=== PATIENT | female | born 1970 | race American Indian/Alaskan Native ===

== ENCOUNTER 2018-09-29 15:34 | Outpatient (CLI) | payer OTHER ==
--- NOTE | 2018-09-29 18:43 | Magnetic Resonance Report ---
PROCEDURE: MR CERVICAL SPINE WO CON HISTORY: CERVICALGIA FINDINGS: MRI of the cervical spine was performed using sagittal T1, sagittal T2, sagittal inversion recovery, axial T2 and axial T2*gradient echo images. These images demonstrate that the visualized portion of the posterior fossa is within normal limits. The C1-C2 articulation is normally aligned. At C2-C3 there are no posterior disc abnormalities. At C3-C4 there is loss of disc T2 signal intensity. There is a small central and left paracentral dis c protrusion which effaces the anterior margin of the thecal sac but does not result in canal stenosi s. There is no evidence of neural foraminal narrowing or nerve root impingement. At C4 C5, C5 C6 and C7-T1 there is mild loss of disc T2 signal intensity. There are no posterior disc abnormalities. There is no evidence of canal stenosis or nerve root impingement. At C6-C7 there is a minimal central disc protrusion which does not result in canal stenosis or signif icant neural foraminal narrowing or nerve root impingement. At C7-T1 there are no posterior disc abnormalities. Cervical cord signal is within normal limits. IMPRESSION: Small central and left paracentral disc protrusion at C3-C4 which does not result in sheryl l stenosis or nerve root impingement. This document is electronically signed by Binu Loyola MD., September 29 2018 06:41:09 PM ET
== END 2018-09-29 15:35 | disposition home or self-care (01) ==
LOC: MRI 15:34
PROVIDERS: ATTEND Orthopaedic Surgery
DX: M50.21 Other cervical disc displacement, high cervical region (principal); I10 Essential (primary) hypertension
CPT/HCPCS: 72141

== ENCOUNTER 2019-01-07 11:15 | Outpatient (CLI) | payer OTHER ==
--- NOTE | 2019-01-07 15:11 | Magnetic Resonance Report ---
MRI UPPER EXTREMITY JOINT RIGHT WITHOUT CONTRAST HISTORY: Pain in right shoulder. TECHNIQUE: Multisequence, multiplanar MRI without contrast was performed through the right shoulder. COMPARISON: None. FINDINGS: A focal full thickness tear is identified in the distal supraspinatus tendon measuring approximately 5 mm in greatest diameter. This tear is located just lateral to the acromion approximately 1 cm from its insertion site on the proximal humerus. The subscapularis tendon, infraspinatus tendon and teres minor tendon are intact. There is increased signal and thickening in the horizontal portion of the long head of the biceps tendon. A longitudinal tear or tendinosis is suspected. The labrum is grossly intact. The bone marrow signal within the visualized bony structures is within normal limits. Mild acromioclavicular osteoarthritis is noted. A small joint effusion and small fluid in the subdeltoid bursa are identified. IMPRESSION: Focal full thickness tear in the distal supraspinatus tendon. Tendinosis versus longitudinal tear in the horizontal portion of the long head of the biceps tendon. Mild acromioclavicular osteoarthritis. Small joint effusion and bursal fluid.
== END 2019-01-07 11:16 | disposition home or self-care (01) ==
LOC: MRI 11:15
PROVIDERS: ATTEND Orthopaedic Surgery
DX: M75.101 Unspecified rotator cuff tear or rupture of right shoulder, not specified as traumatic (principal); M19.011 Primary osteoarthritis, right shoulder; M25.411 Effusion, right shoulder; I10 Essential (primary) hypertension

== ENCOUNTER 2019-02-12 12:18 | Day surgery (SDC) | payer OTHER ==
[~2019-02-12 12:18] MED LIST: ADRENALINE P/F ONE; DEPO-Medrol ONE; MARCAINE-EPI 0.25%-1:200,000 INFILTRATI ONE
[2019-02-12] MEDS ORDERED: SUBLIMAZE IV PRN (13:03)
[2019-02-12] MEDS ORDERED: SUBLIMAZE IV ONE (13:03)
--- NOTE | 2019-02-12 13:03 | Anesthesia Day of Surgery ---
Anesthesia Day of Surgery - Day of Surgery Patient Examined: Yes Patient H&P Reviewed: Yes Patient is NPO: Yes
--- NOTE | 2019-02-12 13:03 | Anesthesia Consultation ---
Anesthesia Consult and Med Hx Date of service: 02/12/19 - Airway Anesthetic Teeth Evaluation: Good ROM Head & Neck: Adequate Mental/Hyoid Distance: Adequate Mallampati Class: Class II Intubation Access Assessment: Probably Good - Pulmonary Exam CTA: Yes - Cardiac Exam Cardiac Exam: No Murmur (abnormal rhythm consistent with bigeminy) - Pre-Operative Health Status ASA Pre-Surgery Classification: ASA2 Proposed Anesthetic Plan: General Nerve Block: IS - Pulmonary Hx Smoking: No Hx Respiratory Symptoms: No Hx Sleep Apnea: No - Cardiovascular System Hx Hypertension: Yes (took methyldopa this morning) Hx Coronary Artery Disease: No Hx Heart Attack/AMI: No Hx Percutaneous Transluminal Coronary Angioplasty (PTCA): No Hx Cardia Arrhythmia: Yes (hx Bigeminy with neg cardiac work up per patient report) - Central Nervous System Hx Seizures: No CVA: No Hx Psychiatric Problems: No - Gastrointestinal Hx Gastroesophageal Reflux Disease: No - Endocrine Hx Renal Disease: No Hx Liver Disease: No Hx Insulin Dependent Diabetes: No Hx Non-Insulin Dependent Diabetes: No Hx Thyroid Disease: No - Other Systems Hx Obesity: No - Additional Comments Anesthesia Medical History Comments: No hx anesthetic complications.
[2019-02-12] MEDS ORDERED: NEURONTIN PO NR (14:00)
[2019-02-12] MEDS ORDERED: VERSED IV NR (14:00)
[2019-02-12] MEDS ORDERED: LACTATED RINGERS 1,000 ML IV SCH (14:00)
[2019-02-12] MEDS ORDERED: MARCAINE-EPI 0.5%-1:200,000 INFILTRATI ONE (14:35)
[2019-02-12] MEDS ORDERED: ANCEF/STERILE WATER 2 GM/20 ML IV NR (15:00)
[2019-02-12] MEDS ORDERED: DEPO-Medrol ONE ×3 (15:35→19:58)
[2019-02-12] MEDS ORDERED: DIPRIVAN 10 MG/ML IV ONE (19:00)
[2019-02-12] MEDS ORDERED: SUBLIMAZE ONE (19:01)
[2019-02-12] MEDS ORDERED: ZOFRAN ONE (19:02)
[2019-02-12] MEDS ORDERED: XYLOCAINE MPF 2% ONE (19:02)
[2019-02-12] MEDS ORDERED: DECADRON ONE (19:02)
[2019-02-12] MEDS ORDERED: ADRENALINE P/F ONE (19:42)
[2019-02-12] MEDS ORDERED: DEPO-Medrol INTRA-ARTI ONE ×2 (20:03)
[2019-02-12] MEDS ORDERED: ADRENALIN IV ONE (20:03)
[2019-02-12] MEDS ORDERED: ROBINUL ONE (20:26)
[2019-02-12] MEDS ORDERED: BLOXIVERZ ONE (20:26)
[2019-02-12] MEDS ORDERED: TORADOL ONE (20:26)
[2019-02-12] MEDS ORDERED: ZEMURON IV ONE (20:26)
--- NOTE | 2019-02-12 20:32 | Procedure Note ---
Date of procedure: 02/12/19 Pre-op diagnosis: Right shoulder pain Post-op diagnosis: same Procedure: Arthroscopy right shoulder with subacromial decompression Procedure The patient was brought to the OR after being given a scalene nerve block for postop pain management, she was placed on the table supine following induction with MAC anesthesia patient was turned into the left lateral decubitus position at which point the right shoulder was prepped and draped in the usual sterile manner. A timeout procedure was done to identify the patient and the correct operative site. Routine arthroscopic portals were made into the subacromial space examination of the subacromial space revealed patient had abundant bursal thickening with apparent partial thickness tears in the supraspinatus tendon along with a large bone spur noted at the distal acromion using a combination of arthroscopic shaver and tissue ablator the subacromial space was debrided of soft tissue and the arm was then rotated internally and externally to see if there were a full-thickness rotator cuff tear done was seen next the arthroscope was placed into the glenohumeral joint and examination here revealed the patient to have very little in the way of arthritic changes along the humeral head. In the glenoid fossa he was noted to have thinning of the labral tissue the biceps labral complex appeared to be intact without any undue tension noted next the arthroscope was removed from the glenohumeral joint and then repositioned into the subacromial space using a 5.5 bur or acromionizer the bone spurs were debrided. A second look was done to see if there are any any residual bony and soft tissue debris and none was seen the arthroscope was then removed the stab wounds were repaired routine postop dressings were applied and the patient tolerated the procedure Anesthesia: MAC, regional Surgeon: MICHAEL CALERO Workgroup Leader: REAGAN GRAHAM Estimated blood loss: 50-100ml Pathology: none Condition: stable Disposition: PACU
[2019-02-12 21:16] VITALS: BP 156/71
== END 2019-02-12 21:50 | disposition home or self-care (01) ==
LOC: OR 12:18
PROVIDERS: ATTEND Orthopaedic Surgery
DX: M75.51 Bursitis of right shoulder (principal); M75.121 Complete rotator cuff tear or rupture of right shoulder, not specified as traumatic; M76.891 Other specified enthesopathies of right lower limb, excluding foot; I42.9 Cardiomyopathy, unspecified; E78.00 Pure hypercholesterolemia, unspecified; I10 Essential (primary) hypertension; Z90.49 Acquired absence of other specified parts of digestive tract; Z90.721 Acquired absence of ovaries, unilateral; Z98.890 Other specified postprocedural states; Z79.899 Other long term (current) drug therapy
CPT/HCPCS: 29822; 64415; 81025; J0171; J0690; J1030; J1100; J1885; J2250; J2405; J2704; J2710; J3010; J7120